=== PATIENT | female | born 1940 | race Caucasian/White ===

== ENCOUNTER → 2016-03-28 07:24 | Outpatient (CLI) | payer MEDICARE ==
[~2016-03-28 07:24] MED LIST: ALDACTONE25 MG PO; BENADRYL25 MG PO; CALAN SR240 MG PO; HYDROCODONE-APA1 TAB PO; NORVASC2.5 MG PO; PROTONIX40 MG PO; VOLTAREN100 GM TOPICAL; ZYLOPRIM100 MG PO
[2016-03-28 08:08] LABS: ALBUMIN 4.3 g/dL (3.4-5.0); BILIRUBIN - DIRECT 0.2 mg/dL (0.00-0.30); BILIRUBIN - INDIRECT 0.7 mg/dL (0.00-1.00); BILIRUBIN - TOTAL 0.9 mg/dL (0.2-1.3); PROTEIN - SERUM 7.7 g/dL (6.4-8.2)
[2016-04-25 07:02] VITALS: BMI 31.1
== END | disposition home or self-care (01) ==
LOC: D.US 07:24
PROVIDERS: Internal Medicine Gastroenterology
DX: K76.0 Fatty (change of) liver, not elsewhere classified (principal)

== ENCOUNTER 2016-04-25 05:08 | Day surgery (SDC) | payer MEDICARE ==
[~2016-04-25] VITALS: Ht 157.5 cm; Wt 77.1 kg
[~2016-04-25 05:08] MED LIST changes: -BENADRYL25 MG PO; -HYDROCODONE-APA1 TAB PO
[2016-04-25] MEDS ORDERED: BENADRYL25 MG PO (06:30)
[2016-04-25 06:36] LABS: BASOPHILS 0.6 % (0.0-2.0); EOSINOPHILS 1.7 % (0-7); HEMOGLOBIN 12.5 g/dL (12-16); IMMATURE GRANULOCYTES 0.6 % (0-5); LYMPHOCYTES 26.5 % (15-50); MCH 30.7 pg (26.0-34.0); MCHC 33.8 g/dL (31.0-37.0); MCV 90.9 fL (80.0-100.0); MEAN PLATELET VOLUME 9.3 fL (7.4-10.4); MONOCYTES 8.1 % (2-11); NEUTROPHILS 62.5 % (40-80); PLATELET COUNT 166 10x3/uL (130-400); RBC 4.07 10x6/uL (4.00-5.40); RDW 12.9 % (11.5-14.5); WBC 5.4 10x3/uL (4.8-10.8)
[2016-04-25 06:57] LABS: CALC OSMOLALITY 282 mosm/kg (275-300); CARBON DIOXIDE 27.3 mmol/L (21.0-32.0); CHLORIDE - SERUM 106 mmol/L (98-107); CREATININE - SERUM 0.7 mg/dL (0.6-1.3); GLUCOSE 118 mg/dL (74-106); POTASSIUM - SERUM 3.6 mmol/L (3.5-5.1); SODIUM 142 mmol/L (136-145); UREA NITROGEN 11 mg/dL (7-18); eGFR NON AFRICAN AMERICAN 87 mL/min (90-120)
[2016-04-25 07:02] VITALS: BP 145/72; Ht 157.5 cm; Wt 77.1 kg
--- NOTE | 2016-04-25 07:29 | NUR ---
0737 PT VOICED CONCERNS OF RECEIVING LOVENOX INJECTION. SHE STATES SHE HAD BLACK TARRY STOOLS IN EARLY MARCH RELATED TO USING PRESCRIBED XARELTO WHICH HAS SINCE BEEN DISCONTINUED. DR. JANE CALLED BY Benji MERRITT R.N.. STATES MAY HOLD LOVENOX. John JACKSON R.N.
[2016-04-25] MEDS ORDERED: HYDROCODONE-APA1 TAB PO (08:38)
--- NOTE | 2016-04-25 10:36 | NUR ---
1017 EATING JELLO WITHOUT FURTHER NAUSEA. 1 NORCO 10/325MG PO FOR PAIN. RANKS PAIN 5/10. PT INFORMED WILL TAKE A BIT TO FEEL EFFECT OF NORCO. John JACKSON R.N.
--- NOTE | 2016-04-25 12:58 | NUR ---
1230 DRESSED. AWAKE & ALERT. GIVEN DISCHARGE INFROMATION PACKET INCLUDINGG: RX: NORCO 10/325MG, MED REC., DISCHARGE INSTRUCTIONS FOR CHOLECYSTECTOMY, OUT PT DISCHARGE INSTRUCTIONS, & RTC APPT. PT VOICED UNDERSTANDING. TO PRIVATE CAR PER WHEELCHAIR BY VOLUNTEER. HOME WITH , DEVIN AGRAWAL. John JACKSON R.N.
--- NOTE | 2016-05-12 13:21 | OP ---
PATIENT NAME: YUNIEL AGRAWAL MEDICAL RECORD: [id number] :42 LOCATION:D.OPS ADMISSION DATE: SURGEON: TROY JANE MD DATE OF OPERATION: 04/25/2016 PREOPERATIVE DIAGNOSES: 1. Gallstones. 2. Bradycardia. 3. Hypertension. POSTOPERATIVE DIAGNOSES: 1. Gallstones. 2. Bradycardia. 3. Hypertension. PROCEDURE: Laparoscopic cholecystectomy. SURGEON: Troy Jane MD REPORT OF PROCEDURE: The patient's abdomen was prepped and draped in sterile fashion. A skin incision was made just above the umbilicus, 0 Vicryls were placed in the fascia bilaterally and the fascia was incised with 15-blade. I then bluntly entered the peritoneal cavity and placed a 12-mm Reuben port. Under direct visualization, a 5 mm trocar was placed in the epigastrium and 2 more 5-mm trocars were placed in the right subcostal region. The gallbladder was grasped and elevated. There was some inflammatory adhesions of fatty tissue present. These were teased down carefully with blunt dissection. The cystic artery and cystic duct were dissected free and these were clipped proximally and distally and ligated in standard fashion. As we dissected further up there was another branch of the cystic artery. This was clipped proximally and distally and ligated. At this point, the gallbladder was taken off the liver bed using electrocautery and placed in the right upper quadrant. Any bleeding from the liver bed was treated with electrocautery. The ports and insufflation were then removed and the gallbladder was taken out through the umbilicus. The umbilical fascia was closed with interrupted 0 Vicryl times 3. The wounds were irrigated out with normal saline and infused with 10 mL of 0.25% Marcaine with epinephrine. The skin incisions were all closed with subcutaneous 5-0 Monocryl and dressed appropriately. COMPLICATIONS: None. CONDITION: Stable. ANESTHESIA: General endotracheal and local. BLOOD LOSS: Minimal. TRANSINT:[id number] Voice Confirmation ID: [id number] DOCUMENT ID: [id number] OPERATIVE REPORT [id number] YUNIEL AGRAWAL TROY JANE MD at 1321 CC: CAYETANO DUDLEY MD [id number] DICTATION DATE: 04/25/16 0843 [employer] PROGRAM TECHNICIAN: 04/25/16 1111 [facility] 04/25/16 [facility] [id number] [facility] [place] [address]
== END 2016-04-25 12:30 | disposition home or self-care (01) ==
LOC: D.OPS 05:08 → D.PAN 07:30 → D.OPS 12:30
PROVIDERS: Surgery
DX: K80.20 Calculus of gallbladder without cholecystitis without obstruction (principal); R00.1 Bradycardia, unspecified; I10 Essential (primary) hypertension; K21.9 Gastro-esophageal reflux disease without esophagitis; G47.30 Sleep apnea, unspecified; Z95.0 Presence of cardiac pacemaker